=== PATIENT | male | born 1990 | race African-American/Black ===

== ENCOUNTER 2019-08-15 08:38 | Emergency (ER) | payer BC ==
[~2019-08-15] VITALS: Ht 175.3 cm; Wt 108.9 kg
[~2019-08-15 08:38] MED LIST: APAP500 PO; COLACE100 MG PO; HYDROCODON-ACE1 EAC7 PO; IBUPROFEN 600600 M1 PO; NAPROSYN500 MG PO; NORCO 5-325 TA1 EACH PO; PROVENTIL HFA6.7 G1 INH; TRAMADOL 50 MG50 MG PO; ZPAK PO
[2019-08-15] MEDS ORDERED: NORVASC5 MG PO (08:51)
[2019-08-15] MEDS ORDERED: ERYTHROMYCIN E3.5 G3 OPHTHALMIC (09:30)
[2019-08-15 10:14] VITALS: BP 142/65
== END 2019-08-15 10:14 | disposition home or self-care (01) ==
LOC: ER 08:38
DX: R05 Cough (principal); F17.210 Nicotine dependence, cigarettes, uncomplicated